=== PATIENT | female | born 1995 | race Two or more races ===

== ENCOUNTER 2021-07-03 17:21 | Emergency (ER) | payer OTHER ==
[~2021-07-03] VITALS: Ht 160 cm; Wt 122.5 kg
[2021-07-03 18:36] VITALS: BP 129/89
[2021-07-03] MEDS ORDERED: KETOROLAC TROMETH 30 MG/ML 1ML VIAL IM ONE (19:00)
[2021-07-03] MEDS ORDERED: IBUP800T27 PO (20:35)
== END 2021-07-03 20:30 | disposition home or self-care (01) ==
LOC: ER 17:21
DX: S92.911A Unspecified fracture of right toe(s), initial encounter for closed fracture (principal); L60.0 Ingrowing nail; X58.XXXA Exposure to other specified factors, initial encounter; Y93.89 Activity, other specified; Y92.89 Other specified places as the place of occurrence of the external cause; Y99.8 Other external cause status
CPT/HCPCS: 73660; 96372; 99283; J1885